=== PATIENT | male | born 1985 | race Caucasian/White ===

== ENCOUNTER 2022-04-26 08:52 | Emergency (ER) | payer MEDICARE, MEDICAID, SELFPAY ==
[2022-04-26] VITALS (12 sets, daily range): BP systolic 97–111; BP diastolic 58–76; PULSE 113–117; RESP 14–18; TEMP 36.9; O2SAT 96; BMI 30.2
--- NOTE | 2022-04-26 09:23 | CT_ITS ---
STUDY: CT BRAIN WITHOUT CONTRAST REASON FOR EXAM: Male, 0 days old. Change in Mental Status. Patient is noncommunicative. RADIATION DOSAGE (If Supplied By Facility): CTDIvol = ( 44.99 ) mGy, DLP = ( 779.24 ) mGycm TECHNIQUE: Transaxial CT imaging of the brain was performed without administration of intravenous contrast material. Individualized dose optimization techniques were used for this CT. COMPARISON: No relevant priors. FINDINGS: Normal soft tissue structures. Normal calvarium. Normal size ventricles and extra-axial spaces for the patient''s age. Normal white matter tracts of the cerebral hemispheres. Normal basal ganglia and thalami. Normal brainstem. Normal cerebellum. There is no intracranial hemorrhage. There are no findings of an acute ischemic infarction. Normal visualized paranasal sinuses. CT/Brain/Head without Contrast IMPRESSION: Normal unenhanced CT scan of the brain. Electronically Signed: Manjinder Ramos MD at 10:30 EST ,
--- NOTE | 2022-04-26 09:23 | EX.ED.DYSGE1 ---
HPI History of Present Illness Chief Complaint: Mental Status Change Detail of Chief Complaint: Mental status change Informant: EMS and police/sourcing associate Narrative Narrative: Patient presents the emergency department via EMS. Please officer found patient sitting in mental roadway with bizarre behavior really not giving any history. At one point he told the officer he needed help. Patient had no identification on him. He has not given us any information. Patient will not verbalize anything to us. PFSH PFSH Medical History unable to obtain Home Medications NK 04/26/22 [History Last Taken Unknown] Allergy/AdvReac Type Severity Reaction Status Date / Time Unable to Assess Allergy Verified 04/26/22 09:05 Surgical History unable to obtain Social History Smoking Status: Unknown if ever smoked ROS ROS ED Review of Systems ROS Unobtainable: due to mental condition EXAM Physical Exam Const Vital Signs: 04/26/22 08:54 04/26/22 08:53 04/26/22 10:05 Temperature 98.4 F 98.4 F Temperature Source Temporal Temporal Pulse Rate 117 Respiratory Rate 18 L 16 L Blood Pressure 111/76 H Blood Pressure Mean 87 Pulse Ox 96 Oxygen Delivery Method Room Air 04/26/22 11:07 Temperature Temperature Source Pulse Rate Respiratory Rate 16 L Blood Pressure Blood Pressure Mean Pulse Ox Oxygen Delivery Method Positive well nourished and well developed General Appearance ED: well developed and NAD HEENT Reports TM's clear and moist mucous membranes normocephalic and atraumatic; Negative for trauma or tenderness Tympanic Membrane ED: Yes TM's clear Eyes PERRL and EOMs intact bilaterally General Eye ED: Negative for pale conjunctiva or scleral icterus Neck no lymphadenopathy, supple and no JVD General: Negative for tenderness Chest Wall inspection of chest normal and palpation of chest normal Chest: Negative for tenderness Resp normal respiratory effort and clear to auscultation bilaterally Effort and Inspection: Negative for respiratory distress or pain with movement Auscultation: Negative for rhonchi, wheezes or diminished lung sounds Cardio regular rate, regular rhythm, S1 normal heart sound, S2 normal heart sound and no murmurs Peripheral Pulses: pulses 2+ throughout GI normal to inspection, nondistended, normoactive bowel sounds, soft to palpation, non-tender, non-distended and no masses Back/Spine no CVA tenderness and no thoracic nor lumbar tenderness Extremity normal to inspection General Extremety ED: Negative for edema General Extremity: Negative for edema Neuro oriented x3, CN's II-XII intact bilaterally, no sensory deficits noted and gait normal Sensorium / Orientation: awake, alert, oriented to person, oriented to place and oriented to time Motor Exam: strength 5/5 throughout and strength abnormal Psych mental status grossly normal Skin no rashes or lesions noted and no wounds MDM MDM MDM Narrative Medical decision making narrative: Patient had CBC with differential that showed a slightly elevated white count of 14.5. Chemistries unremarkable. Alcohol was negative and toxicology screen was negative. CT scan of the brain without contrast was unremarkable. Police was eventually able to identify the patient and nursing staff spoke with his mother who stated that patient does have history of schizophrenia and has been noncompliant with his medications. Plan will be to have patient evaluated by crisis for placement to psychiatric facility. Care of patient turned over to evening physician awaiting evaluation by crisis and final disposition Lab Data Attestation: I reviewed the patient's lab results. Labs: Laboratory Results - last 24 hr 04/26/22 04/26/22 04/26/22 09:28 09:45 09:45 WBC 14.5 RBC 4.65 Hgb 14.5 Hct 41.5 L MCV 89.2 L MCH 31.2 MCHC 34.9 RDW Std Deviation 41.0 RDW Coeff of Kelly 12.6 Plt Count 187 L MPV 10.1 Immature Gran % (Auto) 0.300 Neut % (Auto) 81.0 H Lymph % (Auto) 11.1 L [place] % (Auto) 7.2 H Eos % (Auto) 0.1 Baso % (Auto) 0.3 Absolute Neuts (auto) 11.8 H Absolute Lymphs (auto) 1.61 Nucleated RBC % 0 Sodium 138 Potassium 4.0 Chloride 105 Carbon Dioxide 23.0 Anion Gap 10 BUN 15 Creatinine 0.81 Estim Creat Clear Calc -520155.57 Est GFR (MDRD) Af Amer TNP Est GFR (MDRD) Non-Af TNP BUN/Creatinine Ratio 18.5 Glucose 95 H Calcium 9.4 Urine Color Urine Clarity Urine pH Ur Specific [place] Urine Protein Urine Glucose (UA) Urine Ketones Urine Occult Blood Urine Nitrite Urine Bilirubin Urine Urobilinogen Ur Leukocyte Esterase Urine RBC Urine WBC Ur Squamous Epith Cells Urine Bacteria Urine Mucus Urine Opiates Screen Urine Methadone Screen Ur Barbiturates Screen Ur Phencyclidine Scrn Ur Amphetamines Screen MDMA (Ecstasy) Screen U Benzodiazepines Scrn Urine Cocaine Screen U Cannabinoids Screen Ur Drug Screen Comment Ethyl Alcohol POC Glucose 95 04/26/22 04/26/22 04/26/22 09:45 12:30 12:30 WBC RBC Hgb Hct MCV MCH MCHC RDW Std Deviation RDW Coeff of [place] Plt Count MPV Immature Gran % (Auto) Neut % (Auto) Lymph % (Auto) [place] % (Auto) Eos % (Auto) Baso % (Auto) Absolute Neuts (auto) Absolute Lymphs (auto) Nucleated RBC % Sodium Potassium Chloride Carbon Dioxide Anion Gap BUN Creatinine Estim Creat Clear Calc Est GFR (MDRD) Af Amer Est GFR (MDRD) Non-Af BUN/Creatinine Ratio Glucose Calcium Urine Color Yellow Urine Clarity Sl. Cloudy Urine pH 5.0 Ur Specific [place] 1.025 Urine Protein 15 H Urine Glucose (UA) Normal Urine Ketones 150 A* Urine Occult Blood Negative Urine Nitrite Negative Urine Bilirubin Negative Urine Urobilinogen Normal Ur Leukocyte Esterase Negative Urine RBC 0-5 SEEN Urine WBC 0 SEEN Ur Squamous Epith Cells 0 SEEN Urine Bacteria RARE Urine Mucus 0 SEEN Urine Opiates Screen NEGATIVE Urine Methadone Screen NEGATIVE Ur Barbiturates Screen NEGATIVE Ur Phencyclidine Scrn NEGATIVE Ur Amphetamines Screen NEGATIVE MDMA (Ecstasy) Screen NEGATIVE U Benzodiazepines Scrn NEGATIVE Urine Cocaine Screen NEGATIVE U Cannabinoids Screen NEGATIVE Ur Drug Screen Comment Ethyl Alcohol 4.0 POC Glucose Radiography Diagnostic Testing: Clinical Impression(s) from Imaging Studies Brain CT 04/26/22 09:23 IMPRESSION: Normal unenhanced CT scan of the brain. Electronically Signed: Manjinder Ramos MD at 10:30 EST , Discharge Plan Triage Chief Complaint: Mental Status Change ED Provider: Angus Zamora Dx/Rx/DC Orders Clinical Impression: Schizophrenia, Acute alteration in mental status Prescriptions: No Action NK Primary Care Provider: Care Physician,No Primary Referrals: Care Physician,No Primary [Primary Care Provider] - Disposition Disposition: DC/Tx to Another Type of HCF
[2022-04-26 09:57] LABS: Absolute Lymphocyte Count 1.61 X10^3/uL (0.83-4.51); Absolute Neutrophil Count 11.8 X10^3/uL (2.0-7.7); Basophil# 0.05 X10^3/uL; Basophil% 0.3 % (0-1); Eosinophil# 0.01 X10^3/uL; Eosinophils% 0.1 % (0-2); Hematocrit 41.5 % (45-61); Hemoglobin 14.5 g/dL (13.0-16.5); Lymphocyte # 1.61 X10^3/ul (0.83-4.51); Lymphocyte % 11.1 % (19-29); Mean Corp Hgb Conc 34.9 g/dL (29-37); Mean Corpuscular Hgb 31.2 pg (31.0-37.0); Mean Corpuscular Volume 89.2 fL (95-115); Mean Platelet Vol. 10.1 fl (6.2-12.0); Monocyte# 1.04 X10^3/uL; Monocyte% 7.2 % (5-7); NRBC Flagged by Analyzer 0 % (0-5); Neutrophil # 11.76 X10^3/uL (2.7-7.7); Platelet Count 187 K/mm3 (250-450); RBC Distribution Width CV 12.6 % (11.6-17.9); Red Blood Count 4.65 M/mm3 (4.0-5.9); White Blood Count 14.5 K/mm3 (9-35)
[2022-04-26 10:08] LABS: Anion Gap 10 (5-15); BUN 15 mg/dL (7-18); BUN/Creat Ratio 18.5 RATIO (10-20); Calcium,Total 9.4 mg/dL (8.5-10.1); Chloride 105 mmol/L (98-107); Creatinine, Serum 0.81 mg/dL (0.30-0.90); Glucose 95 mg/dL (40-60); Sodium Level 138 mmol/L (136-145)
[2022-04-26 12:36] LABS: Mucous, Urine 0 SEEN /hpf (<or=2+); Squamous Epithelial Cells - UA 0 SEEN /hpf (0-5); White Blood Cells 0 SEEN /hpf (0-5)
[2022-04-26 12:41] LABS: Color, Urine Yellow (Yellow); Glucose, Dipstick Normal (Normal); Leukocyte Esterase-Dipstick Negative /ul (Negative); Nitrite-Dipstick Negative (Negative); Occult Blood-Urine Negative /ul (Negative); Protein-Dipstick 15 mg/dl (Negative); Specific Gravity, Urine 1.025 (1.002-1.030); Urine Bilirubin Dipstick Negative (Negative); Urine Clarity Sl. Cloudy (Clear); Urine Urobilinogen Normal (Normal)
[2022-04-26 12:52] LABS: Amphetamine Urine VISTA NEGATIVE (<1000 ng/mL); Barbiturate Urine VISTA NEGATIVE (< 200 ng/mL); Benzodiazepine Urine VISTA NEGATIVE (< 200 ng/mL); Cocaine Urine VISTA NEGATIVE (< 300 ng/mL); Ecstacy Urine VISTA NEGATIVE (< 500 ng/mL); Methadone Urine VISTA NEGATIVE (< 300 ng/mL); PCP Urine VISTA NEGATIVE (< 25 ng/mL); THC Urine VISTA NEGATIVE (< 50 ng/mL); Vista UDS pH Range 5
[2022-04-26 12:55] LABS: Ketone-Dipstick 150 mg/dl (Negative)
[2022-04-26 13:08] LABS: Bacteria RARE /hpf (None Seen); Red Blood Cells-Urine 0-5 SEEN /hpf (0-5)
[2022-04-26 13:46] LABS: Bedside Glucose 95 mg/dL (74-106)
[2022-04-27] VITALS (7 sets, daily range): BP systolic 100–104; BP diastolic 62–64; PULSE 70–100; RESP 15–18; O2SAT 96–100
== END 2022-04-27 12:43 ==
PROVIDERS: Emergency Provider Emergency Medicine; Visit Provider Emergency Medicine
DX: Z04.6 Encounter for general psychiatric examination, requested by authority (principal); F20.9 Schizophrenia, unspecified; R41.82 Altered mental status, unspecified; Z20.822 Contact with and (suspected) exposure to COVID-19
CPT/HCPCS: 36415; 70450; 80048; 80307; 81001; 82077; 82962; 85025; 87426; 99285